=== PATIENT | male | born 2000 | race Caucasian/White ===

== ENCOUNTER 2023-11-30 15:46 | Emergency (ER) | payer OTHER, SELFPAY ==
--- NOTE | ~2023-11-30 | CT_ITS ---
EXAMINATION: HEAD CT WITHOUT CONTRAST CERVICAL SPINE CT WITHOUT CONTRAST CLINICAL INFORMATION: Head strike. Neck pain. COMPARISON: None. TECHNIQUE: Contiguous axial imaging of the head was performed without the administration of IV contrast. Axial multidetector volumetric images were also performed through the cervical spine without intravenous contrast. Multiplanar reconstructed images in coronal and sagittal orientations were submitted. This CT examination was performed using dose optimization techniques as appropriate, variously including the following: *Automated exposure control *Adjustment of mA and/or kV according to patient size (this includes techniques or standardized protocols for targeted exams where dose is matched to indication/reason for exam; i.e. extremities or head) *Use of iterative reconstruction technique DOSE: 1190 mGy-cm FINDINGS: HEAD: There is no evidence of acute intracranial hemorrhage or territorial infarction. No abnormal mass-effect or midline shift. No extra-axial fluid collections. Morton to white matter differentiation is well preserved. Jt cisterna magna. The ventricles are normal in size and configuration. There is no abnormal attenuation within the brain parenchyma. The soft tissues and osseous structures are normal. The sinuses and mastoid air cells are clear. CERVICAL SPINE: Vertebral body heights are normal. No fractures of the vertebral bodies or posterior elements. Vertebral alignment is normal. No subluxation. The craniocervical and atlantoaxial articulations are normal. Intervertebral disc heights are normal. No significant degenerative disc disease. Facet joints are normal. Central canal and neural foramina appear patent without appreciable stenoses. No significant paravertebral soft tissue swelling. Cervical soft tissues are unremarkable. Imaged portions of the lung apices are clear. CT/CT cervical spine wo IV con IMPRESSION: 1. No acute intracranial pathology. 2. No acute fracture or malalignment in the cervical spine.
[2023-11-30 15:51] VITALS: BP 142/95; PULSE 97; RESP 16; TEMP 36.5; O2SAT 96; BMI 23.7
--- NOTE | 2023-11-30 15:53 | ED_ITS ---
HPI - Head Injury General Chief complaint: Head Injury Stated complaint: hit head , memory loss blurring vision Time Seen by Provider: 11/30/23 19:31 Source: patient and RN notes reviewed Mode of arrival: ambulatory Limitations: no limitations History of Present Illness HPI Narrative: This is a 23-year-old male, with no known medical problems, who presents emergency department complaints of head strike. Patient was doing a back flip at a [employer] park today when he flipped backwards and accidentally struck the posterior aspect of his head on a wall. He believes he lost consciousness. He does not recall the event after striking his head. Initially patient was very tearful, repeating questions in triage, and having difficulty with recalling events including situational event leading up to today's emergency room visit. He is alert and oriented x4. Endorsing headache and neck pain, and lightheadedness. Denies any chest pain or shortness of breath. He denies taking any medications at home prior to his arrival. No other complaints or concerns at this time. MD Complaint: head injury and head pain Onset (ago): hour(s) Mechanism of Injury: sports related injury Place: outdoors Loss of Consciousness: yes Location of injury: occipital Severity: moderate Quality: aching Radiation: none Other Injuries: none Associated symptoms: confusion, amnesia and repetitive questioning Related Data Allergies Allergy/AdvReac Type Severity Reaction Status Date / Time No Known Allergies Allergy Verified 11/30/23 15:59 Review of Systems Review of Systems: Yes all other systems are reviewed and are negative Constitutional: Constitutional: Reports as per HPI Physical Exam Vital Signs: Vital Signs: Last Vital Signs Temp 97.7 F 11/30/23 19:25 Pulse 65 11/30/23 19:25 Resp 18 11/30/23 19:25 BP 119/64 11/30/23 19:25 Pulse Ox 98 11/30/23 19:25 O2 Del Method Room Air 11/30/23 19:25 BMI result Body Mass Index 23.7 Const: General: cooperative, comfortable and no acute distress Orientation/ consciousness: patient oriented x3 Limitations: no limitations HEENT: Head: Yes normal to inspection, Yes normocephalic and Yes atraumatic Ears: hearing grossly normal bilaterally General nose exam: Normal external nose present Face and sinus: Yes normal facial exam Mouth: Normal oral and palatal mucosa present, oropharynx normal and moist mucous membranes Throat: Yes posterior oropharynx normal Eyes: General: appearance normal, both eyes and all related structures Eyelids: Yes eyelids normal Conjunctivae: conjunctivae normal Sclerae: sclerae normal Pupils: Equal, round and reactive pupils present EOM: EOMs intact bilaterally Neck: Neck: Yes normal visual inspection, Yes full ROM and Yes no lymphadenopathy Lymphatic: no lymphadenopathy noted Chest: Chest palpation & inspection: normal inspection of the chest Resp: Effort & Inspection: normal respiratory effort and able to speak in complete sentences Auscultation: clear to auscultation bilaterally, no cr ackles, no rales, no rhonchi and no wheezes Cardio: Rate: regular rate Rhythm: regular rhythm Heart sounds: S1 normal heart sound present and S2 normal heart sound present GI: Inspection: Yes normal to inspection Skin: General skin exam: no rashes or lesions noted Trauma: no lacerations or abrasions Wounds: no wounds Neuro: General: patient oriented x3 and moves all extremities Cranial nerves: Yes CN's II-XII intact bilaterally and Yes Equal, round and reactive pupils present Cognition (Neuro): normal cognition Gait exam (Neuro): Normal gait present Motor exam (neuro): 5/5 motor strength present throughout and Pronator motor function not present Coordination: [id number] test normal, wijg-[id number] test normal and No sways with eyes open Romberg Test: Negative Extrem: General: Yes normal to inspection Right upper extremity: normal to inspection Left upper extremity: normal to inspection Right lower extremity: normal to inspection Left lower extremity: normal to inspection Course Reevaluation(s) Reevaluation #1: Patient re-evaluated, and has been in the emergency department for approximately 4 hours. He is no longer repeating statements, he is alert and oriented x4. He has expressing no nausea or vomiting. He is neurologically intact. He has recollection of the memories leading up to the injury. CT scan of the head and neck were unremarkable. Given that patient has no declining neurologic function, and has improving in neurologic function, including no longer repeating sentences, no longer tearful, I discussed this case with my attending, Dr. Gooden, that given he has family who can closely monitor, he is stable for discharge. I gave patient as well as mother at bedside strict return precautions. He understands and agrees with plan. Patient stable for discharge. Time: 20:09 Medical Decision Making Medical Decision Making [facility] Narrative: This is a 23-year-old male, with no known medical problems, presenting to the emergency department with complaints of head trauma which occurred today. On arrival, ISS patient, patient hypertensive at 142/95, patient repeating questions, tearful, however he is neurologically intact. Sent over for CT scan of head and neck immediately. I discussed case with my attending physician, Dr. Gooden. Given he is alert and oriented, this is likely amnesia secondary to concussion. Will continue to closely monitor. Differential Diagnosis Differential Diagnoses: The differential diagnosis associated with the presentation includes ICH, subdural hematoma, concussion, closed head injury, cervical spine fracture Admission/Observation Consideration of admission/observation: Escalation of care including admission/observation considered Escalation of care including admission/observation considered however given wo rkup today not warranted at this time. Radiology Impression Discussion of test interpretation with radiology: I have reviewed the radiologi st's reading. Radiologist Impression: EXAMINATION: HEAD CT WITHOUT CONTRAST CERVICAL SPINE CT WITHOUT CONTRAST CLINICAL INFORMATION: Head strike. Neck pain. COMPARISON: None. TECHNIQUE: Contiguous axial imaging of the head was performed without the administration of IV contrast. Axial multidetector volumetric images were also performed through the cervical spine without intravenous contrast. Multiplanar reconstructed images in coronal and sagittal orientations were submitted. This CT examination was performed using dose optimization techniques as appropriate, variously including the following: *Automated exposure control *Adjustment of mA and/or kV according to patient size (this includes techniques or standardized protocols for targeted exams where dose is matched to indication/reason for exam; i.e. extremities or head) *Use of iterative reconstruction technique DOSE: 1190 mGy-cm FINDINGS: HEAD: There is no evidence of acute intracranial hemorrhage or territorial infarction. No abnormal mass-effect or midline shift. No extra-axial fluid collections. Morton to white matter differentiation is well preserved. Jt cisterna magna. The ventricles are normal in size and configuration. There is no abnormal attenuation within the brain parenchyma. The soft tissues and osseous structures are normal. The sinuses and mastoid air cells are clear. CERVICAL SPINE: Vertebral body heights are normal. No fractures of the vertebral bodies or posterior elements. Vertebral alignment is normal. No subluxation. The craniocervical and atlantoaxial articulations are normal. Intervertebral disc heights are normal. No significant degenerative disc disease. Facet joints are normal. Central canal and neural foramina appear patent without appreciable stenoses. No significant paravertebral soft tissue swelling. Cervical soft tissues are unremarkable. Imaged portions of the lung apices are clear. CT/CT head/brain wo IV con IMPRESSION: 1. No acute intracranial pathology. 2. No acute fracture or malalignment in the cervical spine. Dictated By: Dorian Vega MD EXAMINATION: HEAD CT WITHOUT CONTRAST CERVICAL SPINE CT WITHOUT CONTRAST CLINICAL INFORMATION: Head strike. Neck pain. COMPARISON: None. TECHNIQUE: Contiguous axial imaging of the head was performed without the administration of IV contrast. Axial multidetector volumetric images were also performed through the cervical spine without intravenous contrast. Multiplanar reconstructed images in coronal and sagittal orientations were submitted. This CT examination was performed using dose optimization techniques as appropriate, variously including the following: *Automated exposure control *Adjustment of mA and/or kV according to patient size (this includes techniques or standardized protocols for targeted exams where dose is matched to indication/reason for exam; i.e. extremities or head) *Use of iterative reconstruction technique DOSE: 1190 mGy-cm FINDINGS: HEAD: There is no evidence of acute intracranial hemorrhage or territorial infarction. No abnormal mass-effect or midline shift. No extra-axial fluid collections. Morton to white matter differentiation is well preserved. Jt cisterna magna. The ventricles are normal in size and configuration. There is no abnormal attenuation within the brain parenchyma. The soft tissues and osseous structures are normal. The sinuses and mastoid air cells are clear. CERVICAL SPINE: Vertebral body heights are normal. No fractures of the vertebral bodies or posterior elements. Vertebral alignment is normal. No subluxation. The craniocervical and atlantoaxial articulations are normal. Intervertebral disc heights are normal. No significant degenerative disc disease. Facet joints are normal. Central canal and neural foramina appear patent without appreciable stenoses. No significant paravertebral soft tissue swelling. Cervical soft tissues are unremarkable. Imaged portions of the lung apices are clear. CT/CT cervical spine wo IV con IMPRESSION: 1. No acute intracranial pathology. 2. No acute fracture or malalignment in the cervical spine. Dictated By: Dorian Vega MD Discharge Plan Discharge Clinical Impression: Closed head injury, Concussion with loss of consciousness Patient Disposition: Home, Self-Care Instructions: Concussion (ED), Post Concussion Syndrome (ED) Additional Instructions: You were seen in the emergency department after hitting your head. Your CT of your head and CT of your neck were normal today. You have a concussion. Physical and mental rest will help heal the brain faster. It is very important to drink plenty of fluids get plenty of rest. If any new or worsening symptoms occur including but not limited to worsening headaches, dizziness, blurred vision, changes in behavior, nausea, vomiting, please return for re-evaluation. Take Tylenol as needed for your pain and symptoms for the next several days. You may switch to ibuprofen afterwards. Stand Alone Forms: Work/School Release Print Language: Serbian
[2023-11-30 19:25] VITALS: BP 119/64; PULSE 65; RESP 18; TEMP 36.5; O2SAT 98
[2023-11-30 20:09] VITALS: BP 120/66; PULSE 66; RESP 18; TEMP 36.6; O2SAT 98
== END 2023-11-30 20:11 | disposition home or self-care (01) ==
PROVIDERS: Emergency Provider Emergency Medicine
DX: S06.0XAA Concussion with loss of consciousness status unknown, initial encounter (principal); M54.2 Cervicalgia; H53.8 Other visual disturbances; R51.9 Headache, unspecified; R41.3 Other amnesia; Y93.44 Activity, trampolining; Y92.39 Other specified sports and athletic area as the place of occurrence of the external cause; Y99.8 Other external cause status
CPT/HCPCS: 70450; 72125; 99284